=== PATIENT | male | born 1970 | race Caucasian/White ===

== ENCOUNTER 2017-04-27 20:53 | Observation (INO) | payer BC, OTHER ==
[2017-04-27] MEDS ORDERED: Sodium Chloride 0.9% 10 ML Syringe FLUSH PRN (21:27)
[2017-04-27] MEDS ORDERED: Sodium Chloride 0.9% 1,000 ML IV ONE (21:27)
[2017-04-27] MEDS ORDERED: Ondansetron 4 MG/2 ML SDV IVPUSH ONE (21:58)
--- NOTE | 2017-04-27 21:58 | EDM.PDOC ---
ED HPI GENERAL MEDICAL PROBLEM - General Chief Complaint: Gastrointestinal Problem Stated Complaint: Nausea/Vomiting, Diabetic Time Seen by Provider: 04/27/17 21:17 Source of Information: Reports: Patient History Limitations: Reports: No Limitations - History of Present Illness INITIAL COMMENTS - FREE TEXT/NARRATIVE: Patient comes in with complaints of nausea and vomiting the last couple of days. He has been working in the sun and heat over the last week and not drinking well. He is diabetic type 1. He does not have an insulin pump. He does use lantus and humalog. He states he has not been using any of his insulin , nor has he been checking his glucose levels. He did have a father that in his 40's due to not taking care of his diabetes. He states he really hasn't eaten much since Monday. He also states that after he throws up there are some coffee ground appearance to the emesis. Denies blood in stool. He denies headache, chest pain, shortness of breath, no weakness, no neurologic complaints. Regular voiding, regular bowel movements. He does complain of some burning to the middle of his stomach after eating or drinking with vomiting shortly thereafter. He does state that this feels similar to when he did suffer DKA previously. Onset Date: 04/25/17 Duration: Getting Worse Location: Reports: Abdomen Quality: Reports: Other (burning) Severity: Moderate Improves with: Reports: None Worsens with: Reports: Eating Associated Symptoms: Reports: Nausea/Vomiting - Related Data Allergies Allergy/AdvReac Type Severity Reaction Status Date / Time No Known Allergies Allergy Verified 04/27/17 21:31 Home Meds: Home Meds Insulin Aspart [NovoLOG] 2 units SQ TID 04/27/17 [History] Insulin Glarg,Human.Rec.Analog [LantUS Solostar] 42 unit SQ DAILY 04/27/17 [ History] ED ROS GENERAL - Review of Systems Review Of Systems: See Below Constitutional: Reports: No Symptoms HEENT: Reports: No Symptoms Respiratory: Reports: No Symptoms Cardiovascular: Reports: No Symptoms Endocrine: Reports: No Symptoms GI/Abdominal: Reports: Abdominal Pain, Nausea, Vomiting : Reports: No Symptoms Musculoskeletal: Reports: No Symptoms Skin: Reports: No Symptoms Neurological: Reports: No Symptoms Psychiatric: Reports: No Symptoms Hematologic/Lymphatic: Reports: No Symptoms Immunologic: Reports: No Symptoms ED EXAM, GI/ABD - Physical Exam Exam: See Below Exam Limited By: No Limitations General Appearance: Alert, WD/WN, Mild Distress Eyes: Bilateral: EOMI Ears: Normal TMs Head: Atraumatic, Normocephalic Neck: Normal Inspection, Supple, Non-Tender Respiratory/Chest: No Respiratory Distress, Lungs Clear, Normal Breath Sounds, No Accessory Muscle Use, Chest Non-Tender Cardiovascular: Normal Peripheral Pulses, Regular Rate, Rhythm, No Edema, No Gallop, No Murmur GI/Abdominal: Normal Bowel Sounds, Soft, Non-Tender, No Organomegaly Back Exam: Normal Inspection Extremities: Normal Inspection, Normal Range of Motion, Non-Tender, No Pedal Edema, Normal Capillary Refill Neurological: Alert, Oriented, CN II-XII Intact, Normal Cognition, Normal Gait, Normal Reflexes, No Motor/Sensory Deficits Psychiatric: Normal Affect, Normal Mood Skin Exam: Warm, Dry, Intact, Normal Color Lymphatic: No Adenopathy Course - Vital Signs Last Recorded V/S: Last Vital Signs Temp 36.3 C 04/27/17 21:20 Pulse 112 H 04/27/17 21:20 Resp 16 04/27/17 21:20 BP 147/74 H 04/27/17 21:20 Pulse Ox 96 04/27/17 21:20 - Orders/Labs/Meds Orders: Active Orders 24 hr Category Date Time Status Abdomen 2V AP Flat Upright [CR] Routine Exams 04/27/17 22:05 Ordered AMYLASE [CHEM] Stat Lab 04/27/17 22:17 Ordered LIPASE [CHEM] Stat Lab 04/27/17 22:17 Ordered Sodium Chloride 0.9% [Normal Saline] 1,000 ml Med 04/27/17 21:27 Active IV ONETIME Sodium Chloride 0.9% [Saline Flush] Med 04/27/17 21:27 Active 10 ml FLUSH ASDIRECTED PRN Saline Lock Insert [OM.PC] Routine Oth 04/27/17 21:27 Ordered Medication Orders Sodium Chloride (Normal Saline) 1,000 mls @ 999 mls/hr IV ONETIME ONE Stop: 04/27/17 22:27 Last Admin: 04/27/17 21:40 Dose: 999 mls/hr Sodium Chloride (Saline Flush) 10 ml FLUSH ASDIRECTED PRN PRN Reason: Keep Vein Open Labs: Laboratory Tests 0704/27/17 04/27/17 Range/Units 21:35 21:44 21:44 WBC 16.6 H (4.0-10.0) x10^3/uL RBC 4.60 (4.5-6.0) x10^6/uL Hgb 13.5 L (14.0-18.0) g/dL Hct 39.7 L (40.0-52.0) % MCV 86.3 (78.0-93.0) fL MCH 29.3 (26.0-32.0) pg MCHC 34.0 (32.0-36.0) g/dL RDW Coeff of Mirna 13.3 (10.0-15.0) % Plt Count 357 (130-400) x10^3/uL Neut % (Auto) 88.4 H (50.0-80.0) % Lymph % (Auto) 7.7 L (25.0-50.0) % [place] % (Auto) 3.2 (2.0-11.0) % Eos % (Auto) 0.0 (0.0-4.0) % Baso % (Auto) 0.7 (0.2-1.2) % POC ABG pH (7.35-7.45) POC ABG pCO2 (35-45) mmHG POC ABG pO2 (80-105) mmHG POC ABG HCO3 (22-26) mmol/L POC ABG Total CO2 (23-27) mmol/L POC ABG O2 Sat (95-98) % POC ABG Base Excess (-2-3) mmol/L POC FiO2 Sodium 133 L (136-145) mmol/L Potassium 4.9 (3.5-5.1) mmol/L Chloride 90 L (98-107) mmol/L Carbon Dioxide 13 L (21-32) mmol/L BUN 38 H (7-18) mg/dL Creatinine 2.3 H (0.70-1.30) mg/dL Est Cr Clr Drug Dosing TNP Estimated GFR (MDRD) 31 Glucose 617 H* (74-106) mg/dL Calcium 9.3 (8.5-10.1) mg/dL Corrected Calcium 9.70 (8.5-10.1) mg/dL Magnesium 2.5 H (1.8-2.4) mg/dL Total Bilirubin 0.7 (0.2-1.0) mg/dL AST 27 (15-37) U/L ALT 37 (16-63) U/L Alkaline Phosphatase 121 H (46-116) U/L C-Reactive Protein (<=0.9) mg/dL Total Protein 7.7 (6.4-8.2) g/dL Albumin 3.5 (3.4-5.0) g/dL Globulin 4.2 Albumin/Globulin Ratio 0.83 POC Result Comm Urine Color Light yellow (YELLOW) Urine Appearance Clear (CLEAR) Urine pH 5.0 (5.0-8.0) Ur Specific [place] 1.015 Urine Protein 100 H (NEGATIVE) mg/dL Urine Glucose (UA) 500 H (NEGATIVE) mg/dL Urine Ketones 80 H (NEGATIVE) mg/dL Urine Occult Blood Moderate H (NEGATIVE) Urine Nitrite Negative (NEGATIVE) Urine Bilirubin Small H (NEGATIVE) Urine Urobilinogen 0.2 (0.2) EU/dL Ur Leukocyte Esterase Negative (NEGATIVE) Urine RBC 0-5 (NOT SEEN) /HPF Urine WBC Not seen (NOT SEEN) /HPF Ur Squamous Epith Cells Not seen (NEGATIVE) /HPF Urine Bacteria Not seen (NEGATIVE) /HPF Urine Mucus Not seen (NEGATIVE) /LPF 04/27/17 04/27/17 Range/Units 21:44 21:58 WBC (4.0-10.0) x10^3/uL RBC (4.5-6.0) x10^6/uL Hgb (14.0-18.0) g/dL Hct (40.0-52.0) % MCV (78.0-93.0) fL MCH (26.0-32.0) pg MCHC (32.0-36.0) g/dL RDW Coeff of Mirna (10.0-15.0) % Plt Count (130-400) x10^3/uL Neut % (Auto) (50.0-80.0) % Lymph % (Auto) (25.0-50.0) % [place] % (Auto) (2.0-11.0) % Eos % (Auto) (0.0-4.0) % Baso % (Auto) (0.2-1.2) % POC ABG pH 7.269 L* (7.35-7.45) POC ABG pCO2 24 L (35-45) mmHG POC ABG pO2 98 (80-105) mmHG POC ABG HCO3 11 L (22-26) mmol/L POC ABG Total CO2 12 L (23-27) mmol/L POC ABG O2 Sat 97 (95-98) % POC ABG Base Excess -16 L (-2-3) mmol/L POC FiO2 0.21 Sodium (136-145) mmol/L Potassium (3.5-5.1) mmol/L Chloride (98-107) mmol/L Carbon Dioxide (21-32) mmol/L BUN (7-18) mg/dL Creatinine (0.70-1.30) mg/dL Est Cr Clr Drug Dosing Estimated GFR (MDRD) Glucose (74-106) mg/dL Calcium (8.5-10.1) mg/dL Corrected Calcium (8.5-10.1) mg/dL Magnesium (1.8-2.4) mg/dL Total Bilirubin (0.2-1.0) mg/dL AST (15-37) U/L ALT (16-63) U/L Alkaline Phosphatase (46-116) U/L C-Reactive Protein 1.7 H (<=0.9) mg/dL Total Protein (6.4-8.2) g/dL Albumin (3.4-5.0) g/dL Globulin Albumin/Globulin Ratio POC Result Comm Called critical res Urine Color (YELLOW) Urine Appearance (CLEAR) Urine pH (5.0-8.0) Ur Specific [place] Urine Protein (NEGATIVE) mg/dL Urine Glucose (UA) (NEGATIVE) mg/dL Urine Ketones (NEGATIVE) mg/dL Urine Occult Blood (NEGATIVE) Urine Nitrite (NEGATIVE) Urine Bilirubin (NEGATIVE) Urine Urobilinogen (0.2) EU/dL Ur Leukocyte Esterase (NEGATIVE) Urine RBC (NOT SEEN) /HPF Urine WBC (NOT SEEN) /HPF Ur Squamous Epith Cells (NEGATIVE) /HPF Urine Bacteria (NEGATIVE) /HPF Urine Mucus (NEGATIVE) /LPF Meds: Medications Generic Name Dose Route Start Last Admin Trade Name Freq PRN Reason Stop Dose Admin Sodium Chloride 1,000 mls @ 999 mls/hr 04/27/17 21:27 04/27/17 21:40 Normal Saline IV 04/27/17 22:27 999 mls/hr ONETIME ONE Administration Sodium Chloride 10 ml 04/27/17 21:27 Saline Flush FLUSH ASDIRECTED PRN Keep Vein Open Discontinued Medications Generic Name Dose Route Start Last Admin Trade Name Deana PRN Reason Stop Dose Admin Ondansetron HCl 4 mg 04/27/17 21:58 04/27/17 22:05 Zofran IVPUSH 04/27/17 21:59 4 mg ONETIME ONE Administration Pantoprazole Sodium 40 mg 04/27/17 21:59 Protonix Iv IVPUSH 04/27/17 22:00 ONETIME ONE - Radiology Interpretation Free Text/Narrative:: Abdominal X-ray ordered - Re-Assessments/Exams Free Text/Narrative Re-Assessment/Exam: 04/27/17 22:22 Review of labs so far reveal an arterial pH of 7.269, pCO2 of 24, pO2 is 98, HCO3 11, glucose of 617, Na+ 133, K+ 4.9, Mg 2.5, Creatinine 2.3, GFR 31, WBC of 16.6, CRP 1.7. Await further results of amylase and lipase. Departure - Departure Time of Disposition: 23:15 Disposition: Refer to Observation Condition: Fair Clinical Impression: Diabetic ketoacidosis - Discharge Information Forms: ED Department Discharge Additional Instructions: Admission to observation. Plan to hydrate, supplement potassium and infuse IV insulin. Every 2 hours glucose monitoring. Reevaluate in the AM. - My Orders Last 24 Hours: My Active Orders 04/27/17 21:27 Sodium Chloride 0.9% [Normal Saline] 1,000 ml IV ONETIME Sodium Chloride 0.9% [Saline Flush] 10 ml FLUSH ASDIRECTED PRN Saline Lock Insert [OM.PC] Routine 04/27/17 22:05 Abdomen 2V AP Flat Upright [CR] Routine 04/27/17 22:17 AMYLASE [CHEM] Stat LIPASE [CHEM] Stat - Assessment/Plan Last 24 Hours: My Active Orders 04/27/17 21:27 Sodium Chloride 0.9% [Normal Saline] 1,000 ml IV ONETIME Sodium Chloride 0.9% [Saline Flush] 10 ml FLUSH ASDIRECTED PRN Saline Lock Insert [OM.PC] Routine 04/27/17 22:05 Abdomen 2V AP Flat Upright [CR] Routine 04/27/17 22:17 AMYLASE [CHEM] Stat LIPASE [CHEM] Stat
[2017-04-27] MEDS ORDERED: Pantoprazole 40 MG Vial IVPUSH ONE (21:59)
[2017-04-27 22:10] LABS: CHLORIDE,CL 90 mmol/L (98-107); SODIUM,NA 133 mmol/L (136-145)
[2017-04-27] MEDS ORDERED: Insulin Regular, Human 10 UNIT in Dextrose 10% in Water 500 ML IV ONE ×2 (22:58)
[2017-04-27] MEDS ORDERED: NS + KCl 20mEq/L 1,000 ML IV SCH (23:00)
[2017-04-27] MEDS ORDERED: Insulin Regular, Human 100 Units/ML 3 ML Vial IV ONE (23:07)
[2017-04-27] MEDS ORDERED: NS + KCl 20mEq/L 1,000 ML ONE (23:10)
[2017-04-27] MEDS ORDERED: Ondansetron 4 MG/2 ML SDV IV PRN (23:50)
[2017-04-28] MEDS ORDERED: 50% Dextrose in Water 50 ML Syringe IV PRN (00:23)
[2017-04-28] MEDS: Enoxaparin 40 MG/0.4 ML Syringe SUBCUT SCH ×2 (00:44→08:45)
[2017-04-28] MEDS: Dextrose 5%-0.45% NaCl 1,000 ML IV SCH ×3 (06:30→23:31)
[2017-04-28] MEDS ORDERED: Acetaminophen 325 MG Tab PO ONE (10:00)
--- NOTE | 2017-04-28 13:43 | PCM.PN ---
- General Info Date of Service: 04/28/17 Admission Dx/Problem (Free Text): Diabetic ketoacidosis Subjective Update: Patient feeling better. No longer vomiting. Is very tired and lethargic, he states due to poor sleep over the last day. No new complaints. Vital signs stable. Functional Status: Reports: ambulating, urinating - Review of Systems General: Reports: Fatigue HEENT: Reports: no symptoms Pulmonary: Reports: no symptoms Cardiovascular: Reports: No Symptoms Gastrointestinal: Reports: No symptoms Genitourinary: Reports: no symptoms Musculoskeletal: Reports: no symptoms Skin: Reports: no symptoms Neurological: Reports: No Symptoms Psychiatric: Reports: no symptoms - Patient Data Vitals - most recent: Last Vital Signs Temp 36.4 C 04/28/17 12:34 Pulse 100 04/28/17 10:00 Resp 16 04/28/17 10:00 BP 131/75 04/28/17 10:00 Pulse Ox 95 04/28/17 10:00 Weight - most recent: 80.739 kg I&O - last 24 hours: Intake & Output 04/27/17 04/28/17 04/28/17 22:59 06:59 14:59 Intake Total 1997 1030 Balance 1997 1030 Lab Results last 24 hrs: Laboratory Results - last 24 hr 04/28/17 04/28/17 04/28/17 Range/Units 00:50 02:29 05:05 WBC (4.0-10.0) x10^3/uL RBC (4.5-6.0) x10^6/uL Hgb (14.0-18.0) g/dL Hct (40.0-52.0) % MCV (78.0-93.0) fL MCH (26.0-32.0) pg MCHC (32.0-36.0) g/dL RDW Coeff of Mirna (10.0-15.0) % Plt Count (130-400) x10^3/uL Neut % (Auto) (50.0-80.0) % Lymph % (Auto) (25.0-50.0) % [place] % (Auto) (2.0-11.0) % Eos % (Auto) (0.0-4.0) % Baso % (Auto) (0.2-1.2) % Sodium (136-145) mmol/L Potassium (3.5-5.1) mmol/L Chloride (98-107) mmol/L Carbon Dioxide (21-32) mmol/L BUN (7-18) mg/dL Creatinine (0.70-1.30) mg/dL Est Cr Clr Drug Dosing mL/min Estimated GFR (MDRD) Glucose (74-106) mg/dL POC Glucose 388 H 335 H 203 H (74-106) mg/dL Calcium (8.5-10.1) mg/dL Corrected Calcium (8.5-10.1) mg/dL Phosphorus (2.6-4.7) mg/dL Magnesium (1.8-2.4) mg/dL Total Bilirubin (0.2-1.0) mg/dL AST (15-37) U/L ALT (16-63) U/L Alkaline Phosphatase (46-116) U/L C-Reactive Protein (<=0.9) mg/dL Total Protein (6.4-8.2) g/dL Albumin (3.4-5.0) g/dL Globulin Albumin/Globulin Ratio 04/28/17 04/28/17 04/28/17 Range/Units 06:25 07:06 07:06 WBC 12.6 H (4.0-10.0) x10^3/uL RBC 4.12 L (4.5-6.0) x10^6/uL Hgb 12.0 L D (14.0-18.0) g/dL Hct 35.4 L (40.0-52.0) % MCV 85.9 (78.0-93.0) fL MCH 29.1 (26.0-32.0) pg MCHC 33.9 (32.0-36.0) g/dL RDW Coeff of Mirna 13.4 (10.0-15.0) % Plt Count 330 (130-400) x10^3/uL Neut % (Auto) 69.6 (50.0-80.0) % Lymph % (Auto) 21.3 L (25.0-50.0) % [place] % (Auto) 8.3 (2.0-11.0) % Eos % (Auto) 0.2 (0.0-4.0) % Baso % (Auto) 0.6 (0.2-1.2) % Sodium 142 (136-145) mmol/L Potassium 3.7 (3.5-5.1) mmol/L Chloride 104 D (98-107) mmol/L Carbon Dioxide 24 D (21-32) mmol/L BUN 30 H (7-18) mg/dL Creatinine 1.9 H (0.70-1.30) mg/dL Est Cr Clr Drug Dosing 50.69 mL/min Estimated GFR (MDRD) 39 Glucose 188 H (74-106) mg/dL POC Glucose 174 H (74-106) mg/dL Calcium 8.3 L (8.5-10.1) mg/dL Corrected Calcium 9.26 (8.5-10.1) mg/dL Phosphorus 3.2 (2.6-4.7) mg/dL Magnesium 2.1 (1.8-2.4) mg/dL Total Bilirubin 0.4 (0.2-1.0) mg/dL AST 17 (15-37) U/L ALT 28 (16-63) U/L Alkaline Phosphatase 91 (46-116) U/L C-Reactive Protein 1.5 H (<=0.9) mg/dL Total Protein 6.5 (6.4-8.2) g/dL Albumin 2.8 L (3.4-5.0) g/dL Globulin 3.7 Albumin/Globulin Ratio 0.76 04/28/17 04/28/17 04/28/17 Range/Units 08:47 10:53 13:22 WBC (4.0-10.0) x10^3/uL RBC (4.5-6.0) x10^6/uL Hgb (14.0-18.0) g/dL Hct (40.0-52.0) % MCV (78.0-93.0) fL MCH (26.0-32.0) pg MCHC (32.0-36.0) g/dL RDW Coeff of Mirna (10.0-15.0) % Plt Count (130-400) x10^3/uL Neut % (Auto) (50.0-80.0) % Lymph % (Auto) (25.0-50.0) % [place] % (Auto) (2.0-11.0) % Eos % (Auto) (0.0-4.0) % Baso % (Auto) (0.2-1.2) % Sodium (136-145) mmol/L Potassium (3.5-5.1) mmol/L Chloride (98-107) mmol/L Carbon Dioxide (21-32) mmol/L BUN (7-18) mg/dL Creatinine (0.70-1.30) mg/dL Est Cr Clr Drug Dosing mL/min Estimated GFR (MDRD) Glucose (74-106) mg/dL POC Glucose 223 H 157 H 269 H (74-106) mg/dL Calcium (8.5-10.1) mg/dL Corrected Calcium (8.5-10.1) mg/dL Phosphorus (2.6-4.7) mg/dL Magnesium (1.8-2.4) mg/dL Total Bilirubin (0.2-1.0) mg/dL AST (15-37) U/L ALT (16-63) U/L Alkaline Phosphatase (46-116) U/L C-Reactive Protein (<=0.9) mg/dL Total Protein (6.4-8.2) g/dL Albumin (3.4-5.0) g/dL Globulin Albumin/Globulin Ratio Med Orders - Current: Current Medications Dextrose/Water (Dextrose 50% In Water) 50 ml IV ASDIRECTED PRN PRN Reason: Hypoglycemia Enoxaparin Sodium (Lovenox) 40 mg SUBCUT DAILY MAURICIO Last Admin: 04/28/17 08:45 Dose: 40 mg Potassium Chloride/Sodium Chloride (Normal Saline With 20 Meq Kcl) 1,000 mls @ 150 mls/hr IV ASDIRECTED MAURICIO Last Admin: 04/27/17 23:18 Dose: 150 mls/hr Dextrose/Sodium Chloride (Dextrose 5%-1/2 Ns) 1,000 mls @ 125 mls/hr IV ASDIRECTED MAURICIO Last Admin: 04/28/17 06:30 Dose: 125 mls/hr Insulin Human Regular 100 unit (/ Sodium Chloride) 100 mls @ 8 mls/hr IV TITRATE MAURICIO; 8 UNITS/HR PRN Reason: Protocol Last Titration: 04/28/17 13:24 Dose: 3 units/hr, 3 mls/hr Ondansetron HCl (Zofran) 4 mg IV Q4H PRN PRN Reason: Nausea/Vomiting Sodium Chloride (Saline Flush) 10 ml FLUSH ASDIRECTED PRN PRN Reason: Keep Vein Open Discontinued Medications Sodium Chloride (Normal Saline) 1,000 mls @ 999 mls/hr IV ONETIME ONE Stop: 04/27/17 22:27 Last Admin: 04/27/17 21:40 Dose: 999 mls/hr Insulin Human Regular 10 unit/ (Dextrose/Water) 500.1 mls @ 500 mls/hr IV ONETIME ONE PRN Reason: Protocol Stop: 04/27/17 23:58 Last Admin: 04/28/17 01:43 Dose: Not Given Potassium Chloride/Sodium Chloride (Normal Saline With 20 Meq Kcl) Confirm Administered Dose 1,000 mls @ as directed .ROUTE .STK-MED ONE Stop: 04/27/17 23:11 Last Admin: 04/27/17 23:18 Dose: Not Given Insulin Human Regular (Humulin R) 10 unit IV ONETIME ONE PRN Reason: Protocol Stop: 04/27/17 23:08 Last Admin: 04/27/17 23:15 Dose: 10 units Ondansetron HCl (Zofran) 4 mg IVPUSH ONETIME ONE Stop: 04/27/17 21:59 Last Admin: 04/27/17 22:05 Dose: 4 mg Pantoprazole Sodium (Protonix Iv) 40 mg IVPUSH ONETIME ONE Stop: 04/27/17 22:00 Last Admin: 04/27/17 22:20 Dose: 40 mg - Exam General: alert, oriented, cooperative, no acute distress HEENT: Pupils equal, Pupils reactive, EOMI Neck: supple Lungs: Clear to auscultation, Normal respiratory effort Cardiovascular: Regular Rate, Regular Rhythm Abdomen: bowel sounds present, soft, no tenderness, no distension Back Exam: Normal Inspection Extremities: no edema Peripheral Pulses: 2+: Posterior Tibial (L), Posterior Tibial (R), Dorsalis Pedis (L), Dorsalis Pedis (R) Skin: warm, dry, intact Neurological: no new focal deficit Psy/Mental Status: alert, normal affect, normal mood - Problem List & Annotations (1) Diabetic ketoacidosis SNOMED Code(s): 213213525, 006029874 Code(s): E13.10 - OTH DIABETES MELLITUS WITH KETOACIDOSIS WITHOUT COMA Status: Acute Current Visit: Yes Qualifiers: Diabetes mellitus type: type 1 Diabetes mellitus complication detail: without coma Qualified Code(s): E10.10 - Type 1 diabetes mellitus with ketoacidosis without coma - Problem List Review Problem List Initiated/Reviewed/Updated: Yes - My Orders Last 24 Hours: My Active Orders 04/27/17 22:48 Patient Status [ADT] Routine 04/27/17 23:00 NS + KCl 20mEq/L [Normal Saline with 20 mEq KCl] 1,000 ml IV ASDIRECTED 04/27/17 23:45 Dextrose 5%-0.45% NaCl [Dextrose 5%-1/2 NS] 1,000 ml IV ASDIRECTED Enoxaparin [Lovenox] 40 mg SUBCUT DAILY Insulin Regular, Human [HumuLIN R] 100 unit Sodium Chloride 0.9% [Normal Saline] 99 ml IV TITRATE 04/27/17 23:50 Patient Status [ADT] Routine Ambulate [RC] ASDIRECTED Oxygen Therapy [RC] PRN VTE/DVT Education [RC] .PRN Vital Signs [RC] 06,10,14,18,22,02 Ondansetron [Zofran] 4 mg IV Q4H PRN Resuscitation Status Routine 04/27/17 23:52 Ambulate [RC] .PRN Cardiac Monitoring [RC] 06,10,14,18,22,02 Pulse Oximetry [RC] PRN Antiembolic Hose [OM.PC] Per Unit Routine 04/27/17 23:54 Antiembolic Devices [RC] 08,20 04/27/17 23:56 Blood Glucose Check, Bedside [RC] 03,05,07,09,11,13,15,17,19,21,23,01 04/28/17 00:23 Dextrose 50% in Water 50 ml IV ASDIRECTED PRN - Assessment Assessment:: diabetic ketoacidosis - Plan Plan:: Continue insulin drip until blood glucose under 200 for 6 consecutive hours. Then switch to subq insulin; lantus and novolog, accuchecks ac/hs Continue IV fluids. Repeat labs in AM Possible discharge tomorrow
[2017-04-28] MEDS: Insulin Glargine,Human Rec. Analog 100 Units/ML 3 ML Pen SUBCUT SCH (22:42)
[2017-04-29 06:09] VITALS: BP 144/82
[2017-04-29] MEDS: Insulin Glargine,Human Rec. Analog 100 Units/ML 3 ML Pen SUBCUT SCH ×2 (07:56→08:04)
[2017-04-29] MEDS: Enoxaparin 40 MG/0.4 ML Syringe SUBCUT SCH (07:59)
[2017-04-29] MEDS ORDERED: Insulin Aspart 100 Units/ML 3 ML Pen SUBCUT SCH ×2 (08:00)
[2017-04-29 08:20] LABS: CHLORIDE,CL 106 mmol/L (98-107); SODIUM,NA 141 mmol/L (136-145)
--- NOTE | 2017-05-19 02:36 | DISCH ---
ADMITTING PROVIDER: FARHAN Souza. ADMITTING DIAGNOSES: 1. Diabetic ketoacidosis. 2. Dehydration. SUBJECTIVE: The patient was admitted by Yinka Mac on 04/27/2017 with elevated blood sugar of approximately 617. The patient was given regular insulin, IV fluids, and was started on an insulin drip. At the time of discharge, the patient's blood sugar was in the sub 200 range and he was feeling much improved. He is also profoundly dehydrated and was rehydrated with crystalloids. The patient has been eating and drinking adequately and states that he has not been experiencing any chest pain, shortness of breath, or lightheadedness. OBJECTIVE: General: This is a 47-year-old male patient, in no acute distress. Vital Signs: Blood pressure is 144/82, heart rate is 84, temperature is 37.4, respiratory rate 16, O2 saturations 96%. Skin: Warm, pink, and dry. HEENT: Mouth, oral mucosa is moist. Lungs: Clear to auscultation. Heart: Regular rate and rhythm. Abdomen: Soft, nontender. There is no hepatosplenomegaly or masses noted. Extremities: Without edema. Neurologic: He is alert, oriented, answers all questions appropriately. His speech is fluent. His gait is within normal limits. LABORATORY DATA: CBC the day before his discharge; WBC is 12.6, hemoglobin is 12.0, platelets are 330. Chemistry; sodium is 142, potassium is 3.7, chloride is 104, bicarb is 24, BUN is 30, creatinine is 1.9. Creatinine clearance is 50.69. GFR is 39, glucose 157, calcium is 8.3, corrected calcium is 9.26, phosphorous is 3.2, magnesium is 2.1, total bilirubin is 0.4, AST is 17, ALT is 28, alkaline phosphatase is 91, C-reactive protein is 1.5. DISPOSITION: Home. FOLLOW UP: With primary care in 5-7 days. Return to the emergency room if he develops any nausea or vomiting. Advised to check his blood sugar 4 times a day. DISCHARGE MEDICATIONS: Continue with home medications. MWK: 05/19/2017 01:44:37 MODL: 05/19/2017 02:30:43 /[id number]
== END 2017-04-29 09:30 | disposition home or self-care (01) ==
LOC: VM.ED 20:53 → VM.MS 22:45
PROVIDERS: ADMIT Nurse Practitioner Family; ATTEND Nurse Practitioner Family
DX: E10.10 Type 1 diabetes mellitus with ketoacidosis without coma (principal); R10.9 Unspecified abdominal pain; Z79.4 Long term (current) use of insulin
CPT/HCPCS: 36415; 36600; 74020; 80053; 81001; 82150; 82803; 82962; 83690; 83735; 84100; 85025; 86140; 96361; 96374; 96375; 99285; A9270; C9113; J1650; J1815; J2405; J3480; J7030; J7042; J7050; 96372; G0378

== ENCOUNTER 2024-06-12 15:59 | Inpatient (IN) | payer BC ==
[2024-06-12 16:46] LABS: HEMATOCRIT 39.7 % (40.0-52.0); HEMOGLOBIN 13.4 g/dL (14.0-18.0); MEAN CORPUSCULAR HEMOGLOBIN 29.5 pg (26.0-32.0); MEAN CORPUSCULAR HGB CONC 33.8 g/dL (32.0-36.0); MEAN CORPUSCULAR VOLUME 87.4 fL (78.0-93.0); PLATELET COUNT,PLT 327 x10^3/uL (130-400); RED BLOOD CELL COUNT 4.54 x10^6/uL (4.5-6.0)
[2024-06-12 16:47] LABS: WHITE BLOOD CELL COUNT,WBC 23.4 x10^3/uL (4.0-10.0)
[2024-06-12] MEDS: cefTRIAXone 2 GM Vial IVPUSH ONE (16:53)
[2024-06-12 16:57] LABS: BAND PERCENT MAN 6 % (0-6); LYMPHOCYTES ABSOLUTE MAN 1.2 x10^3/uL (1.0-4.8); LYMPHOCYTES PERCENT MAN 5 % (25-50); MONOCYTES ABSOLUTE MAN 1.2 x10^3/uL (0.0-0.8); MONOCYTES PERCENT MAN 5 % (2-11); NEUTROPHILS ABSOLUTE MAN 21.1 x10^3/uL (1.8-7.7); PLATELET COUNT ESTIMATE ADEQUATE; SEG NEUTROPHILS PERCENT MAN 84 % (50-80)
[2024-06-12] MEDS: Sodium Chloride 0.9% 10 ML Syringe FLUSH PRN (16:58)
[2024-06-12 17:01] LABS: A/G RATIO 0.55; ALANINE AMINOTRANSFERASE,ALT 17 U/L (16-63); ALBUMIN 2.7 g/dL (3.4-5.0); ALKALINE PHOSPHATASE 121 U/L (46-116); BILIRUBIN TOTAL 0.6 mg/dL (0.2-1.0); BLOOD UREA NITROGEN,BUN 27 mg/dL (7-18); C-REACTIVE PROTEIN 15.82 mg/dL (<=0.50); CALCIUM 9.4 mg/dL (8.5-10.1); CARBON DIOXIDE,CO2 22 mmol/L (21-32); CHLORIDE,CL 90 mmol/L (98-107); CREATININE 2.3 mg/dL (0.70-1.30); EST CRCL DRUG DOSING (CG) 38.57 mL/min; POTASSIUM,K 5.1 mmol/L (3.5-5.1); PROTEIN TOTAL,TP 7.6 g/dL (6.4-8.2); SODIUM,NA 131 mmol/L (136-145)
[2024-06-12 17:04] LABS: ANION GAP 24.1 mmol/L (5-15); ESTIMATED GFR 33 mL/min (>=60)
[2024-06-12 17:05] LABS: GLUCOSE RANDOM 450 mg/dL (70-99)
[2024-06-12 17:12] LABS: ASPARTATE AMNIOTRANSFERASE,AST < 10 U/L (15-37)
[2024-06-12] MEDS: Lactated Ringers 1,000 ML IV ONE (17:35)
[2024-06-12] MEDS ORDERED: Glucagon,Human Recombinant 1 MG Vial IM PRN (18:19)
[2024-06-12] MEDS ORDERED: 50% Dextrose in Water 50 ML Syringe IVPUSH PRN (18:19)
[2024-06-12] MEDS: Insulin Lispro 100 Units/ML 3 ML Vial SUBCUT ONE (19:31)
[2024-06-12] MEDS ORDERED: Ondansetron 4 MG Tab.DIS PO PRN (19:49)
[2024-06-12] MEDS: Insulin Lispro 100 Units/ML 3 ML Vial SUBCUT SCH ×2 (21:05→21:20)
[2024-06-12] MEDS: Ketorolac 30 MG/ML SDV IVPUSH PRN (21:11)
[2024-06-12] MEDS: Metoprolol Tartrate 25 MG Tab PO SCH (21:25)
[2024-06-12] MEDS: Acetaminophen/HYDROcodone 325-5 MG Tab PO PRN (21:25)
[2024-06-12] MEDS: Sodium Chloride 0.9% 1,000 ML IV SCH (21:30)
[2024-06-13 07:24] LABS: HEMATOCRIT 34.5 % (40.0-52.0); HEMOGLOBIN 11.7 g/dL (14.0-18.0); MEAN CORPUSCULAR HEMOGLOBIN 29.5 pg (26.0-32.0); MEAN CORPUSCULAR HGB CONC 33.9 g/dL (32.0-36.0); MEAN CORPUSCULAR VOLUME 87.1 fL (78.0-93.0); RED BLOOD CELL COUNT 3.96 x10^6/uL (4.5-6.0); WHITE BLOOD CELL COUNT,WBC 19.4 x10^3/uL (4.0-10.0)
[2024-06-13 07:37] LABS: C-REACTIVE PROTEIN 14.93 mg/dL (<=0.50); CALCIUM 8.8 mg/dL (8.5-10.1); EST CRCL DRUG DOSING (CG) 44.61 mL/min; POTASSIUM,K 4.2 mmol/L (3.5-5.1)
[2024-06-13 07:40] LABS: ANION GAP 15.2 mmol/L (5-15)
[2024-06-13] MEDS: Losartan 50 MG Tab PO SCH (08:49)
[2024-06-13] MEDS: Aspirin 81 MG Tab.Chew PO SCH (08:49)
[2024-06-13] MEDS: amLODIPine 5 MG Tab PO SCH (08:50)
[2024-06-13] MEDS: Rosuvastatin 20 MG Tab PO SCH (08:50)
[2024-06-13] MEDS: Insulin Glarg,Human.Rec.Analog 100 Unit/ML 10 ML Vial SUBCUT SCH (08:53)
[2024-06-13 09:05] LABS: HEMOGLOBIN A1C > 13.4 % (<5.7)
[2024-06-13] MEDS: Piperacillin/Tazobactam 4.5 GM in Sodium Chloride 0.9% 100 ML IV ONE (11:10)
[2024-06-13] MEDS: Insulin Lispro 100 Units/ML 3 ML Vial SUBCUT SCH ×2 (12:27)
[2024-06-13] MEDS: Piperacillin/Tazobactam 4.5 GM in Sodium Chloride 0.9% 100 ML IV SCH (15:58)
[2024-06-13] MEDS ORDERED: cefTRIAXone 2 GM Vial IVPUSH SCH (16:00)
[2024-06-14 07:13] LABS: HEMATOCRIT 35.5 % (40.0-52.0); HEMOGLOBIN 11.7 g/dL (14.0-18.0); MEAN CORPUSCULAR HEMOGLOBIN 29.5 pg (26.0-32.0); MEAN CORPUSCULAR VOLUME 89.4 fL (78.0-93.0); RED BLOOD CELL COUNT 3.97 x10^6/uL (4.5-6.0); WHITE BLOOD CELL COUNT,WBC 17.4 x10^3/uL (4.0-10.0)
[2024-06-14 07:32] LABS: ANION GAP 10.8 mmol/L (5-15); CALCIUM 8.7 mg/dL (8.5-10.1); EST CRCL DRUG DOSING (CG) 44.31 mL/min; POTASSIUM,K 3.8 mmol/L (3.5-5.1)
[2024-06-14] MEDS: diphenhydrAMINE 25 MG Cap PO PRN (14:15)
[2024-06-15 07:52] LABS: HEMATOCRIT 33.2 % (40.0-52.0); HEMOGLOBIN 10.8 g/dL (14.0-18.0); MEAN CORPUSCULAR HEMOGLOBIN 29.1 pg (26.0-32.0); MEAN CORPUSCULAR HGB CONC 32.5 g/dL (32.0-36.0); MEAN CORPUSCULAR VOLUME 89.5 fL (78.0-93.0); RED BLOOD CELL COUNT 3.71 x10^6/uL (4.5-6.0)
[2024-06-15 08:09] LABS: CREATININE 2.1 mg/dL (0.70-1.30); EST CRCL DRUG DOSING (CG) 42.59 mL/min; POTASSIUM,K 4.2 mmol/L (3.5-5.1)
[2024-06-15 08:16] LABS: ANION GAP 12.2 mmol/L (5-15)
[2024-06-15] MEDS: Insulin Glarg,Human.Rec.Analog 100 Unit/ML 10 ML Vial SUBCUT SCH (08:40)
[2024-06-15] MEDS: Acetaminophen/HYDROcodone 325-5 MG Tab PO PRN (11:21)
[2024-06-15] MEDS: Sodium Chloride 0.9% 1,000 ML IV SCH (17:04)
[2024-06-16 10:55] LABS: BASOPHILS ABSOLUTE AUTO 0.1 x10^3/uL (0.0-0.2); BASOPHILS PERCENT AUTO 0.4 % (0.2-1.2); EOSINOPHILS ABSOLUTE AUTO 0.3 x10^3/uL (0.0-0.5); EOSINOPHILS PERCENT AUTO 2.1 % (0.0-4.0); HEMATOCRIT 31.5 % (40.0-52.0); HEMOGLOBIN 10.2 g/dL (14.0-18.0); IMMATURE GRAN ABSOLUTE AUTO 0.07 x10^3/uL (0.00-0.07); LYMPHOCYTES ABSOLUTE AUTO 1.4 x10^3/uL (1.0-4.8); LYMPHOCYTES PERCENT AUTO 10.2 % (25.0-50.0); MEAN CORPUSCULAR HEMOGLOBIN 28.9 pg (26.0-32.0); MEAN CORPUSCULAR HGB CONC 32.4 g/dL (32.0-36.0); MEAN CORPUSCULAR VOLUME 89.2 fL (78.0-93.0); MONOCYTES ABSOLUTE AUTO 1.1 x10^3/uL (0.0-0.8); MONOCYTES PERCENT AUTO 8.5 % (2.0-11.0); NEUTROPHILS ABSOLUTE AUTO 10.6 x10^3/uL (1.8-7.7); NEUTROPHILS PERCENT AUTO 78.3 % (50.0-80.0); PLATELET COUNT,PLT 316 x10^3/uL (130-400); RED BLOOD CELL COUNT 3.53 x10^6/uL (4.5-6.0); WHITE BLOOD CELL COUNT,WBC 13.5 x10^3/uL (4.0-10.0)
[2024-06-16 11:10] LABS: CALCIUM 8.1 mg/dL (8.5-10.1); CREATININE 1.9 mg/dL (0.70-1.30); EST CRCL DRUG DOSING (CG) 47.07 mL/min; POTASSIUM,K 4.1 mmol/L (3.5-5.1)
[2024-06-16 11:11] LABS: ANION GAP 11.1 mmol/L (5-15)
[2024-06-17 07:01] LABS: CALCIUM 8.4 mg/dL (8.5-10.1); CREATININE 2.2 mg/dL (0.70-1.30); EST CRCL DRUG DOSING (CG) 40.66 mL/min; POTASSIUM,K 4.2 mmol/L (3.5-5.1)
[2024-06-17 07:02] LABS: ANION GAP 14.2 mmol/L (5-15); BASOPHILS ABSOLUTE AUTO 0.1 x10^3/uL (0.0-0.2); BASOPHILS PERCENT AUTO 0.4 % (0.2-1.2); EOSINOPHILS ABSOLUTE AUTO 0.4 x10^3/uL (0.0-0.5); EOSINOPHILS PERCENT AUTO 2.6 % (0.0-4.0); HEMATOCRIT 32.2 % (40.0-52.0); HEMOGLOBIN 10.4 g/dL (14.0-18.0); IMMATURE GRAN ABSOLUTE AUTO 0.12 x10^3/uL (0.00-0.07); LYMPHOCYTES ABSOLUTE AUTO 1.3 x10^3/uL (1.0-4.8); LYMPHOCYTES PERCENT AUTO 8.3 % (25.0-50.0); MEAN CORPUSCULAR HEMOGLOBIN 29.2 pg (26.0-32.0); MEAN CORPUSCULAR HGB CONC 32.3 g/dL (32.0-36.0); MEAN CORPUSCULAR VOLUME 90.4 fL (78.0-93.0); MONOCYTES ABSOLUTE AUTO 1.3 x10^3/uL (0.0-0.8); MONOCYTES PERCENT AUTO 8.3 % (2.0-11.0); NEUTROPHILS ABSOLUTE AUTO 12.2 x10^3/uL (1.8-7.7); NEUTROPHILS PERCENT AUTO 79.6 % (50.0-80.0); PLATELET COUNT,PLT 315 x10^3/uL (130-400); RED BLOOD CELL COUNT 3.56 x10^6/uL (4.5-6.0); WHITE BLOOD CELL COUNT,WBC 15.3 x10^3/uL (4.0-10.0)
[2024-06-17] MEDS: VANCOmycin 1.5 GM/300 ML 300 ML IV ONE (10:30)
[2024-06-17] MEDS: Acetaminophen/HYDROcodone 325-5 MG Tab PO PRN (11:55)
[2024-06-17] MEDS ORDERED: Acetaminophen 500 MG Tab PO PRN (13:10)
[2024-06-17] MEDS: oxyCODONE 5 MG Tab PO PRN (17:34)
[2024-06-17] MEDS: Ketorolac 15 MG/ML SDV IVPUSH PRN (23:42)
[2024-06-18 06:52] LABS: HEMOGLOBIN 11.6 g/dL (14.0-18.0); MEAN CORPUSCULAR HEMOGLOBIN 29.1 pg (26.0-32.0); MEAN CORPUSCULAR HGB CONC 32.2 g/dL (32.0-36.0); MEAN CORPUSCULAR VOLUME 90.2 fL (78.0-93.0); RED BLOOD CELL COUNT 3.99 x10^6/uL (4.5-6.0); WHITE BLOOD CELL COUNT,WBC 13.3 x10^3/uL (4.0-10.0)
[2024-06-18 07:03] LABS: CALCIUM 8.9 mg/dL (8.5-10.1); EST CRCL DRUG DOSING (CG) 44.72 mL/min; POTASSIUM,K 3.7 mmol/L (3.5-5.1)
[2024-06-18 07:14] LABS: ANION GAP 13.7 mmol/L (5-15)
[2024-06-18] MEDS ORDERED: oxyCODONE 5 MG Tab PO PRN (08:14)
[2024-06-18] MEDS: methylPREDNISolone Sodium Succinate 40 MG/1 ML SDV IVPUSH SCH (09:24)
[2024-06-19 07:00] LABS: HEMATOCRIT 35.1 % (40.0-52.0); HEMOGLOBIN 11.5 g/dL (14.0-18.0); MEAN CORPUSCULAR HGB CONC 32.8 g/dL (32.0-36.0); MEAN CORPUSCULAR VOLUME 88.6 fL (78.0-93.0); RED BLOOD CELL COUNT 3.96 x10^6/uL (4.5-6.0); WHITE BLOOD CELL COUNT,WBC 18.1 x10^3/uL (4.0-10.0)
[2024-06-19 07:10] LABS: CALCIUM 8.9 mg/dL (8.5-10.1); CREATININE 1.7 mg/dL (0.70-1.30); EST CRCL DRUG DOSING (CG) 52.48 mL/min; POTASSIUM,K 4.6 mmol/L (3.5-5.1)
[2024-06-19 07:11] LABS: ANION GAP 13.6 mmol/L (5-15)
[2024-06-19] MEDS: predniSONE 20 MG Tab PO SCH (08:40)
[2024-06-19] MEDS: Linezolid 600 MG Tab PO SCH (08:46)
[2024-06-19 10:50] VITALS: BP 138/80; PULSE 88
== END 2024-06-19 09:15 | disposition home or self-care (01) | DRG 383 ==
LOC: VM.ED 15:59 → VM.MS 18:21
PROVIDERS: ADMIT Nurse Practitioner Family; ATTEND Nurse Practitioner Family
DX: L03.211 Cellulitis of face (principal); E10.40 Type 1 diabetes mellitus with diabetic neuropathy, unspecified; N17.9 Acute kidney failure, unspecified; E10.10 Type 1 diabetes mellitus with ketoacidosis without coma; E10.311 Type 1 diabetes mellitus with unspecified diabetic retinopathy with macular edema; E10.65 Type 1 diabetes mellitus with hyperglycemia; E10.22 Type 1 diabetes mellitus with diabetic chronic kidney disease; N18.30 Chronic kidney disease, stage 3 unspecified; E78.00 Pure hypercholesterolemia, unspecified; D72.829 Elevated white blood cell count, unspecified; I12.9 Hypertensive chronic kidney disease with stage 1 through stage 4 chronic kidney disease, or unspecified chronic kidney disease; Z79.4 Long term (current) use of insulin; Z79.82 Long term (current) use of aspirin; Z98.49 Cataract extraction status, unspecified eye; Z91.148 Patient's other noncompliance with medication regimen for other reason
CPT/HCPCS: 36415; 70450; 70486; 80048; 80053; 80202; 82947; 83036; 83605; 85025; 85027; 86140; 87040; 96361; 96374; 99284; 99284-25; A9270-GY; J0696; J1450; J1815-GY; J1885; J2543; J2919; J3370; J3372; J3490; J7030; J7050; J7120; J7512